=== PATIENT | female | born 1960 | race Caucasian/White ===

== ENCOUNTER 2017-05-16 16:58 | Emergency (ER) | payer BC ==
--- NOTE | 2017-05-16 18:43 | UC ---
Throat Pain/Nasal Kendall HPI - HPI Summary HPI Summary: left side of throat sore and swollen and left ear painful also feels feverish - History of Current Complaint Chief Complaint: UCRespiratory Stated Complaint: SWOLLEN THROAT Time Seen by Provider: 05/16/17 18:36 Hx Obtained From: Patient ?: No Onset/Duration: Sudden Onset, Lasting Days - 1, Still Present Severity: Moderate Cough: None Associated Signs & Symptoms: Positive: Fever - Allergies/Home Medications Allergies/Adverse Reactions: Allergies Allergy/AdvReac Type Severity Reaction Status Date / Time No Known Allergies Allergy Verified 05/16/17 17:16 Home Medications: Home Medications Fluticasone NASAL SPRAY 50MCG* [Flonase NASAL SPRAY 50MCG*] 05/16/17 [History Confirmed 05/16/17] PMH/Surg Hx/FS Hx/Imm Hx Previously Healthy: No Cardiovascular History: Hypertension GI/ History: Gastroesophageal Reflux Psychological History: Depression - Surgical History Surgical History: Yes Surgery Procedure, Year, and Place: 1994- [facility] [place]. Vaughn, Repair of left thumb tendon. 1997- [facility] [place], Dr. Conde, Total ACL replacement. 2008- [place], Hysterectomy with salpingectomy - Family History Known Family History: Positive: None Family History: no reported issues in family lineage - Social History Occupation: Retired Lives: With Family Alcohol Use: None Substance Use Type: None Smoking Status (MU): Former Smoker Type: Cigarettes Length of Time of Smoking/Using Tobacco: 20 years Have You Smoked in the Last Year: No When Did the Patient Quit Smoking/Using Tobacco: QUIT 15 YRS AGO - Immunization History Most Recent Influenza Vaccination: 2011 Most Recent Tetanus Shot: 2010 Most Recent Pneumonia Vaccination: Never Review of Systems Constitutional: Fever, Chills, Fatigue Skin: Negative Eyes: Negative ENT: Sore Throat, Ear Ache Respiratory: Negative Cardiovascular: Negative Gastrointestinal: Negative Genitourinary: Negative Motor: Negative Neurovascular: Negative Musculoskeletal: Negative Neurological: Negative Psychological: Negative All Other Systems Reviewed And Are Negative: Yes Physical Exam Triage Information Reviewed: Yes Appearance: Well-Appearing, No Pain Distress, Well-Nourished Vital Signs: Initial Vital Signs Temp 97.3 F 05/16/17 17:12 Pulse 96 05/16/17 17:12 Resp 12 05/16/17 17:12 BP 144/59 05/16/17 17:12 Pulse Ox 99 05/16/17 17:12 Vital Signs Reviewed: Yes Eye Exam: Normal Eyes: Positive: Conjunctiva Clear ENT Exam: Normal ENT: Positive: Normal ENT inspection, Hearing grossly normal, Pharynx normal, TMs normal, Tonsillar swelling - left. Negative: Nasal congestion, Nasal drainage, Trismus, Muffled/hoarse voice Dental Exam: Normal Neck exam: Normal Neck: Positive: Supple, Nontender, No Lymphadenopathy Respiratory Exam: Normal Respiratory: Positive: Chest non-tender, Lungs clear, Normal breath sounds, No respiratory distress, No accessory muscle use Cardiovascular Exam: Normal Cardiovascular: Positive: RRR, No Murmur, Pulses Normal, Brisk Capillary Refill Musculoskeletal Exam: Normal Musculoskeletal: Positive: Strength Intact, ROM Intact, No Edema Neurological Exam: Normal Neurological: Positive: Alert, Muscle Tone Normal Psychological Exam: Normal Skin Exam: Normal Diagnostics - Laboratory Diagnostic Studies Completed/Ordered: RST (+) Throat Pain/Nasal Course/Dx - Course Assessment/Plan: Amoxicillin, tylenol, ibuprofen increase fluids follow with pcp - Differential Dx/Diagnosis Differential Diagnosis/HQI/PQRI: Otitis Media, Peritonsillar Abscess, Pharyngitis, Sinusitis Provider Diagnoses: Strep Pharyngitis, Hypertension in poor control Discharge - Discharge Plan Condition: Stable Disposition: HOME Prescriptions: Cephalexin CAP* [Keflex CAP*] 500 mg PO BID #18 cap Patient Education Materials: Cephalexin (By mouth), Ibuprofen (By mouth), Strep Throat (ED) Referrals: Janneth Cruz MD [Primary Care Provider] - 2 Weeks
[2017-05-16] MEDS ORDERED: Ibuprofen TAB* 600 MG PO ONE (18:44)
[2017-05-16 19:02] VITALS: BP 124/99
[2017-05-16] MEDS ORDERED: Cephalexin CAP* 500 MG PO ONE ×2 (19:12→19:16)
== END 2017-05-16 19:23 | disposition home or self-care (01) ==
LOC: UCEAST 16:58
DX: J02.0 Streptococcal pharyngitis (principal); I10 Essential (primary) hypertension; K21.9 Gastro-esophageal reflux disease without esophagitis; F32.9 Major depressive disorder, single episode, unspecified; Z87.891 Personal history of nicotine dependence
CPT/HCPCS: 87651; 99213; A9270-GY; G0463

== ENCOUNTER 2019-11-19 13:03 | Emergency (ER) | payer BC ==
--- OUTSIDE RECORDS SUMMARY | 2019-11-19 13:16 | XMS REPORT | Continuity of Care Document ---
:1960 Author Organization [facility] Address [address], [place] [id number] Phone Care Team Providers Name Role Phone Griselda CROCKETTJanuary Unavailable Unavailable Allergies, Adverse Reactions, Alerts Substance Reaction Status No Known Allergies Active Medications Medication Instructions Dosage Effective Dates Status Comments (start - stop) METHOTREXATE SODIUM TAKE 8 TABLETS BY - Active 2.5 MG TABLET MOUTH ONCE A WEEK DULOXETINE HCL DR TAKE 1 CAPSULE - Active CAPS 60MG DAILY Voltaren 1 % apply (2G) by - Active topical gel topical route 4 times every day to the affected area(s) folic acid 1 mg take 2 tablet by 2 MG - Active tablet oral route every day GABAPENTIN CAPS TAKE 2 CAPSULES AT - Active 300MG BEDTIME Lidoderm 5 % apply 1 - 2 patch 1-2 patch - Active topical patch by transdermal route every day (May wear up to 12hours.) OTC SUPPLEMENTS take 1 by Oral - Active route every day as directed/needed irbesartan 150 mg take 1 tablet by 150 MG - Active tablet oral route every day metoprolol take 1 tablet by 100 MG - Active succinate ER 100 mg oral route every tablet,extended day release 24 hr methotrexate sodium take 8 tablets by - No Longer 2.5 mg tablet mouth once a week Active methotrexate sodium take 8 tablets by - No Longer 2.5 mg tablet mouth once a week Active folic acid 1 mg take 1 tablet by 1 MG - No Longer tablet oral route every Active day DULOXETINE HCL DR TAKE 1 CAPSULE - No Longer CAPS 60MG DAILY Active Problems Condition Effective Dates (start - Clinical Status Comments stop) Rheumatoid arthritis w/o rheumatoid factor, multiple sites Other snf (current) drug therapy 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 non-steroidal anti-inflammatories (NSAID) Rheumatoid arthritis w/o rheumatoid factor, multiple sites Other exterminator helper termite (current) drug therapy Pain in joint Back pain Fibromyalgia Lung mass found on diagnostic imaging of lung Rheumatoid arthritis w/o rheumatoid factor of multiple sites Other nonspecific abnormal - finding of lung field Pain in joint Back pain Fibromyalgia Lung mass found on diagnostic imaging of lung Primary generalized (osteo)arthritis Fibromyalgia Other exterminator helper termite (current) drug therapy Fibromyalgia Primary generalized (osteo)arthritis Other exterminator helper termite drug therapy Fibromyalgia Primary generalized (osteo)arthritis Other exterminator helper termite drug therapy Primary generalized (osteo)arthritis Fibromyalgia Lateral epicondylitis, left elbow Other snf drug therapy Primary generalized (osteo)arthritis Fibromyalgia Other exterminator helper termite drug therapy Fibromyalgia Primary generalized (osteo)arthritis Other exterminator helper termite drug therapy Fibromyalgia Primary generalized (osteo)arthritis Other snf drug therapy Procedures Procedure Date ROUTINE VENIPUNCTURE COMPLETE CBC W/AUTO DIFF WBC RBC SED RATE, AUTOMATED C-REACTIVE PROTEIN ASSAY OF CREATININE TRANSFERASE (AST) (SGOT) ALANINE AMINO (ALT) (SGPT) OFFICE/OUTPATIENT VISIT, EST Results Test Name Date and Time Measure Units Reference Range Abnormal Flag Status Comments Panel Description: CBC Final WBC 14:12:00 5.2 10*3/uL 3.7-10.1 Final RBC 14:12:00 4.60 10*6/uL 3.50-5.50 Final HGB 14:12:00 13.5 g/dL 12.0-16.0 Final HCT 14:12:00 41.2 % 36.0-48.0 Final MCV 14:12:00 89.7 fL 80.0-100.0 Final MCH 14:12:00 29.4 pg 26.0-34.0 Final MCHC 14:12:00 32.8 g/dL 31.0-37.0 Final RDW 14:12:00 12.8 % 10.0-15.0 Final PLATELETS 14:12:00 358 10*3/uL 150-500 Final MPV 14:12:00 6.4 fL 6.0-10.0 Final JONEL# 14:12:00 2.94 10*3/uL 2.10-8.00 Final LYM# 14:12:00 1.76 10*3/uL 1.00-5.00 Final MONO# 14:12:00 0.29 10*3/uL 0.10-1.00 Final EOS# 14:12:00 0.1 10*3/uL 0.0-0.5 Final BASO# 14:12:00 0.0 10*3/uL 0.0-0.2 Final JONEL% 14:12:00 56.8 % 50.0-80.0 Final LYM% 14:12:00 34.0 % 25.0-50.0 Final MONO% 14:12:00 5.5 % 2.0-10.0 Final EOS% 14:12:00 2.8 % 0.0-5.0 Final BASO% 14:12:00 0.9 % 0.0-4.0 Final Panel Description: ESR Final ESR 14:12:00 12 mm/Hr 0-20 Final Panel Description: ALT Final ALT 14:12:00 22 U/L 30-65 L Final Panel Description: AST Final AST 14:12:00 15 U/L 15-37 Final Panel Description: CREATININE Final CREATININE 14:12:00 0.7 mg/dL 0.6-1.2 Final eGFR 14:12:00 >60 mL/min/1.73m Final Panel Description: CRP Final CRP 14:12:00 <0.2 mg/dL 0.0-1.0 Final Advance Directives Directive Yes / No Effective Date File Name No information Encounters Encounter Practice Location Reason(s) Diagnoses Date Provider Providers Description For Visit Copied on Encounter Arthritis Arthritis [facility] PA-C January. Ross Hawkins 9 [address] PLL[facility], 5794 PLLC [facility], [place], [place], [place], [place], [id number], [id number], [place]. [place] tel:[phone] tel:[phone] Arthritis Arthritis [facility] PA-C Bruna. Ross Hawkins 9 5[address] PLLC, 5794 PLLC [facility], [place], [place], [place], [place], [place], [id number], [id number], [place]. [place] tel:[phone] tel:[phone] OFFICE/OUTPA Arthritis Arthritis Rheumatoid Rheumatoid [facility] arthritis arthritis w/o PA-C January. Provider: HARDIK Hawkins (chief rheumatoid 9 5[facility], [facility] complaint) Solomon carl MD, [facility], [address] [place] [address], [facility], [place], [place], snf [place], [place], [place], (current) [id number], [place], [address]. [id number], drug [place]. tel:[phone] [place] therapyPain tel:[phone] tel:[phone] wristLong term (current) use of non-steroidal anti-inflamma tories (NSAID) Arthritis Arthritis [facility] 4- MD Dinero. Ross Hawkins 9 5794 PLLC, 5794 PLLC [facility], [place], [place], [place], [place], [place], [id number], [id number], [place]. [place] tel:[phone] tel:[phone] Arthritis Arthritis [facility] 9- BON Mcfarladn. [facility] 9 5794 PLLC, 5794 PLLC [facility], [place], [place], [place], [id number], [id number], [place]. [place] tel:[phone] tel:[phone] Arthritis Arthritis Rheumatoid [facility] arthritis w/o 2- BON Nelson. Provider: Ross Hawkins rheumatoid 9 5[address] [facility], 5[facility] PLLC Solomon carl MD, [facility], [address] [place] [address], sitesOther [place], [place], [place], snf [place], [place], [place], (current) [id number], [place], [address]. [id number], drug therapy [place]. tel:[phone] [place] tel:[phone] tel:[phone] Arthritis Arthritis [facility] 0- MD Dinero. Associates Ross 9 5794 PLLC, 5794 PLLC [facility], [place], [place], [place], [id number], [id number], [place]. [place] tel:[phone] tel:[phone] Arthritis Arthritis Pain in [facility] 1- MD Dinero. Provider: Ross Hawkins painFibromyal 9 5794 [facility], 5794 PLLC giSaurabh [facility] Fitch MD, [facility] found on [place], [address] [facility], diagnostic [place], [place], [place], imaging of [place], [place], [place], lungRheumatoi [id number], [place], [address]. [id number], d arthritis [place]. tel:[phone] [place] w/o tel:[phone] tel:[phone] factor of multiple sites Arthritis Arthritis Other [facility] nonspecific 4-201 MD Dinero. Provider: [facility] abnormal 9 5794 [facility], 5794 PLLC finding of Solomon Fitch MD, [facility] lung field [place], [address] [facility], [place], [place], [place], [place], [place], [place], [id number], [place], [address]. [id number], [place]. tel:[phone] [place] tel:[phone] tel:[phone] Arthritis Arthritis Nabil-0 [facility] 3-201 BON Mcfarland. [facility] 9 5794 PLLC, 5794 PLLC [facility], [place], [place], [place], [place], [place], [id number], [id number], [place]. [place] tel:[phone] tel:[phone] Arthritis Arthritis Pain in February- [facility] 0-201 MD Dinero. Provider: Ross Hawkins painFibromyal 9 5794 [facility], 5794 PLLC giaLung mass Solomon Fitch MD, [facility] found on [place], [address] [facility], [facility], [place], [place], imaging of [place], [place], [place], lung [id number], [place], [address]. [id number], [place]. tel:[phone] [place] tel:[phone] tel:[phone] Arthritis Arthritis Primary Dec-0 [facility] generalized 6-201 BON Mcfarland. Provider: Ross Hawkins (osteo)arthri 8 5794 [facility], 5794 PLLC tisFibromyalg Solomon Fitch MD, [facility] iaOther long [place], [address] [facility], term [place], [place], [place], (current) [place], [place], [place], drug therapy [id number], [place], [address]. [id number], [place]. tel:+[phone] [place] tel:[phone] tel:[phone] Arthritis Arthritis FibromyalgiaP Nabil-0 [facility] rimary 6-201 BON Mcfarland. Provider: Ross Hawkins generalized 8 5794 [facility], 5794 PLLC (osteo)arthri [place] Niziol MD, [facility], [address] [place] [address], term drug [place], Street, [place], therapy [place], [place], [place], [id number], [place], [address]. [id number], [place]. tel:+[phone] [place] tel:[phone] tel:[phone] Arthritis Arthritis FibromyalgiaP Dec-0 [place] Referring [facility] 6-201 BON Mcfarland. Provider: Ross Hawkins generalized 7 5794 [facility], 5794 PLLC (osteo)dario Fitch MD, [facility], [address] [place] [address], term drug [place], Street, [place], therapy [place], [place], [place], [id number], [place], [address]. [id number], [place]. tel:[phone] [place] tel:[phone] tel:[phone] Arthritis Arthritis Primary Nabil-0 McIain Referring [facility] 7-201 BON Mcfarland. Provider: Ross Pardoosteyuliana)arthri 7 5794 [facility], 5794 PLLC Kinga Fitch MD, [facility], [address] [place] [address], epicondylitis [place], Street, [place], , left [place], [place], [place], elbowOther [id number], [place], [address]. [id number], exterminator helper termite [place]. tel:+[phone] [place] drug therapy tel:[phone] tel:[phone] Arthritis Arthritis Primary Dec-0 [place] Referring [facility] 7-201 BON Mcfarland. Provider: Ross Pardoosteo)arthri 6 5794 [facility], 5794 PLLC Kinga Fitch MD, [facility], [address] [facility], term drug [place], Street, [place], therapy [place], [place], [place], [id number], [place], [address]. [id number], [place]. tel:+[phone] [place] tel:[phone] tel:[phone] Arthritis Arthritis FibromyalgiaP Nabil-0 [place] Referring [facility] BON Mcfarland. Provider: Ross Hawkins generalized 6 5794 Luis Alberto PLLNicole, 5794 PLLC (osteo)dario Fitch MD, [facility], [address] [place] [address], term drug [place], Street, [place], therapy [place], [place], [place], [id number], [place], [address]. [id number], [place]. tel:[phone] tel:[phone] tel:[phone] Arthritis Arthritis FibromyalgiaP Dec-0 [place] Referring [facility] BON Mcfarland. Provider: Ross Hawkins generalized 5 5794 Luis Alberto [facility], 5794 PLLC (osteo)dario Fitch MD, [facility], [address] [place] [address], term drug [place], [place], [place], therapy [place], [place], [id number], [place], [address]. [id number], [place]. tel:+[phone] tel:[phone] tel:[phone] Arthritis Arthritis Bijan ALLEN Referring [facility] [place]. 5794 Provider: Ross Hawkins 3 [facility] Luis Alberto PLLNicole, 5794 PLLC Constantine Dickerson MD, [facility], [address] [place] [address], [place], [place], [id number] [place] [address], [place], [address]. [id number], tel:[phone] tel:[phone] tel:[phone] Family History Family Member Diagnosis Age At Onset Family history of Hypertension Family history of Stroke Family history of Diabetes mellitus Immunizations Vaccine Date Status Comments Influenza, injectable, MDCK, administered Source: Other Provider Flucelvax Quad 2017-2018Y Influenza, injectable, quadrivalent, administered Source: Other Provider split virus, 18 years or older Afluria Quad [id number] Payers Payer name Insurance type Covered constitution party ID Authorization(s) BCBS No Referral Required BL [id number] Social History Type Description Quantity Date Captured Comments Alcohol Use Details No Caffeine Use Details No Tobacco Use Status Ex-cigarette smoker Smoking Status Former smoker Smoking Tobacco Use Cigarette: No Details Available Cigarette: No Details Available Details Sex Female Vital Signs Date / Height Weight BMI Pulse Blood Temperature Respiratory Body Head BMI Pulse Inhaled Time: Rate Pressure Rate Surface Circumference percentile Ox Ox Area 63.00 256.00 45.3 124 in lbs 5 mm[Hg] 1:35 kg/m PM eter (2) Chief Complaint And Reason For Visit No information Reason For Referral Reason For Referral No information Plan Of Treatment Date Type Action Status Referral Ordered: ordered *Chest Xrays 2 Views Referral Ordered: ordered *XRAY ENTIRE SPINE AP/LAT Appointment Sabina Roman BOOKED History Of Present Illness Encounter Date Complaint History Of Present Illness Rheumatoid arthritis The pain severity is 7/10. Patient denies having generalized morning stiffness, hair loss, diarrhea, infection, fever, rash, oral ulcers (mouth sores) and photosensitivity. Patient is currently taking Methotrexate with no side effects. Functional Status Date Functional Assessment No information Medications Administered Medication Instructions Dosage Effective Dates (start - stop) Status Comments No information Instructions Date Instruction Additional Information Reviewed importance of compliance/adherence to medications prescribed Risks/benefits of medications reviewed Discussed importance of holding DMARDs/ biologics if patient develops an infection and to notify the treating physician Reviewed importance of compliance/adherence to medications prescribed Risks/benefits of medications reviewed Discussed importance of holding DMARDs/ biologics if patient develops an infection and to notify the treating physician
--- OUTSIDE RECORDS SUMMARY | 2019-11-19 13:16 | XMS REPORT | Continuity of Care Document ---
:1960 Author Organization [facility] Address [address], [place] [id number] Phone Care Team Providers Name Role Phone [...] mg tablet mouth once a week Active DULOXETINE HCL DR TAKE 1 CAPSULE - No Longer CAPS 60MG DAILY Active Problems Condition Effective Dates (start - Clinical Status Comments stop) Rheumatoid arthritis w/o rheumatoid factor, multiple sites Other termite renewal inspector (current) drug therapy Pain in lt wrist [facility] (current) use of non-steroidal anti-inflammatories (NSAID) Rheumatoid arthritis w/o rheumatoid factor, multiple sites Other custodial (current) drug therapy Pain in joint Back pain Fibromyalgia Lung mass found on diagnostic imaging of lung Rheumatoid arthritis w/o rheumatoid factor of multiple sites Other nonspecific abnormal - finding of lung field Pain in joint Back pain Fibromyalgia Lung mass found on diagnostic imaging of lung Primary generalized (osteo)arthritis Fibromyalgia Other termite renewal inspector (current) drug therapy Fibromyalgia Primary generalized (osteo)arthritis Other custodial drug therapy Fibromyalgia Primary generalized (osteo)arthritis Other custodial drug therapy Primary generalized (osteo)arthritis Fibromyalgia Lateral epicondylitis, left elbow Other termite renewal inspector drug therapy Primary generalized (osteo)arthritis Fibromyalgia Other termite renewal inspector drug therapy Fibromyalgia Primary generalized (osteo)arthritis Other custodial drug therapy Fibromyalgia Primary generalized (osteo)arthritis Other custodial drug therapy Procedures Procedure Date No information Results Test Name Date and Time Measure Units Reference Range Abnormal Flag Status Comments No information Advance Directives Directive Yes / No Effective Date File Name No information Encounters Encounter Practice Location Reason(s) Diagnoses Date Provider Providers Description For Visit Copied on Encounter Arthritis Arthritis [facility] 3 PA-C January. Ross Hawkins 9 5794 PLLC, 5794 PLLC [facility], [place], [place], [id number], [id number], [place]. [place] tel:[phone] tel:[phone] Arthritis Arthritis [facility] 2 BON Mcfarland. Ross Hawkins 9 5794 PLLC, 5794 PLLC [facility], [place], [place], [id number], [id number], [place]. [place] tel:[phone] tel:[phone] Arthritis Arthritis Rheumatoid [facility] arthritis w/o BON January. Provider: Ross granados 9 5794 [facility], 5794 PLLC Jose carlbannerkristofer Fitch MD, [facility], [address] [facility], sitesOther [place], Street, [place], termite renewal inspector [place], [place], (current) drug [id number], [place], [address]. [id number], therapyPain in [place]. tel:+[phone] [place] lt wristLong tel:[phone] tel:[phone] term (current) [phone] use of non-steroidal anti-inflammat ories (NSAID) Arthritis Arthritis [facility] - PAElla Mcfarland. Ross Hawkins 9 5794 PLLC, 5794 PLLC [facility], [place], [place], [place], [id number], [id number], [place]. [place] tel:[phone] tel:[phone] Arthritis Arthritis Rheumatoid [facility] arthritis w/o PAElla Nelson. Provider: Ross Hawkins rheumatoid 9 5794 Luis Alberto PLLC, 5794 PLLC [facility], Solomon Fitch MD, [facility], [address] [place] [address], sitesOther [place], Street, [place], custodial [place], [place], (current) drug [id number], [place], [address]. [id number], therapy [place]. tel:+[phone] [place] tel:[phone] tel:[phone] Arthritis Arthritis Pain in [facility] jointBack MD Dinero. Provider: Ross Hawkins painFibromyalg 9 5794 Luis [facility]to PLLC, 5794 PLLC iaLung [facility] Solomon Fitch MD, [facility] found on [place], [address] [place] [address], diagnostic [place], Street, [place], [place], lungRheumatoid [id number], [place], [address]. [id number], arthritis w/o [place]. tel:+[phone] [place] rheumatoid tel:[phone] tel:[phone] [phone] multiple sites Arthritis Arthritis Other [facility] nonspecific - MD Dinero. Provider: Ross Hawkins abnormal 9 5794 [facility] PLLC, 5794 PLLC finding of Solomon Fitch MD, [facility] lung field [place], [address] [facility], [place], [place], [place], [place], [place], [place], [id number], [place], [address]. [id number], [place]. tel:+[phone] [place] tel:[phone] tel:[phone] Arthritis Arthritis Nabil-0 [facility] 3-201 BON Mcfarland. [facility] 9 5794 PLLC, 5794 PLLC Josebannerkristofer [facility], [place], [place], [place], [place], [id number], [id number], [place]. [place] tel:[phone] tel:[phone] Arthritis Arthritis Pain in February- [facility] jointBack 0-201 MD Dinero. Provider: Ross Hawkins painFibromyalg 9 5794 Luis Alberto PLLC, 5794 PLLC iaLung mass Solomon Fitch MD, [facility] found on [place], [address] [place] [address], diagnostic [place], [place], [place], [place], [place], [place], lung [id number], [place], [address]. [id number], [place]. tel:+[phone] [place] tel:[phone] tel:[phone] Arthritis Arthritis Primary Dec-0 [facility] generalized 6- BON Mcfarland. Provider: Ross Hawkins (osteo)arthrit 8 5794 Luis Alberto PLLC, 5794 PLLC isFibromyalgia Solomon Fitch MD, [facility] Other long [place], [address] [facility], term (current) [place], [place], [place], drug therapy [place], [place], [place], [id number], [place], [address]. [id number], [place]. tel:+[phone] [place] tel:[phone] tel:[phone] Arthritis Arthritis FibromyalgiaPr Nabil-0 [facility] imary 6-201 BON Mcfarland. Provider: Ross Hawkins generalized 8 5794 Luis Alberto PLLC, 5794 PLLC (osteo)lukas Fitch MD, [facility], [address] [place] [address], term drug [place], Street, [place], [place], [place], [place], [id number], [place], [address]. [id number], [place]. tel:+[phone] [place] tel:[phone] tel:[phone] Arthritis Arthritis FibromyalgiaPr Dec-0 [place] Referring [facility] imary 6-201 BON Mcfarland. Provider: Ross Hawkins generalized 7 5794 Luis Alberto PLLC, 5794 PLLC (osteo)lukas Fitch MD, [facility], [address] [facility], term drug [place], Street, [place], [place], [place], [id number], [place], [address]. [id number], [place]. tel:+[phone] [place] tel:[phone] tel:[phone] Arthritis Arthritis Primary Nabil-0 [place] Referring [facility] generalized 7-201 BON Mcfarland. Provider: Ross Hawkins (osteyuliana)arthrit 7 5794 Luis Alberto PLLC, 5794 PLLC isFibromrachele Fitch MD, [facility], [address] [place] [address], epicondylitis, [place], Street, [place], left [place], [place], [place], elbowOther [id number], [place], [address]. [id number], termite renewal inspector drug [place]. tel:+[phone] [place] therapy tel:[phone] tel:[phone] Arthritis Arthritis Primary Dec-0 [place] Referring [facility] generalized 7-201 BON Mcfarland. Provider: Ross Hawkins (osteo)arthrit 6 5794 Luis [facility]to PLLC, 5794 PLLC isFkamilla Fitch MD, [facility], [address] [place] [address], term drug [place], Street, [place], therapy [place], [place], [place], [id number], [place], [address]. [id number], [place]. tel:+[phone] [place] tel:[phone] tel:[phone] Arthritis Arthritis FibromyalgiaPr Nabil-0 [place] Referring [facility] imary BON Mcfarland. Provider: Ross Hawkins generalized 6 5794 Luis Alberto PLLNicole, 5794 PLLC (osteo)lukas Fitch MD, [facility], [address] [place] [address], term drug [place], Street, [place], therapy [place], [place], [id number], [place], [address]. [id number], [place]. tel:+[phone] tel:[phone] tel:[phone] Arthritis Arthritis FibromyalgiaPr Dec-0 [place] Referring [facility] BON Mcfarland. Provider: Ross Hawkins generalized 5 5794 Luis Alberto [facility]ORD[facility], 5794 PLLC (osteo)lukas Fitch MD, [facility], [address] [place] [address], term drug [place], [place], [place], therapy [place], [place], [id number], [place], [address]. [id number], [place]. tel:+[phone] tel:[phone] tel:[phone] Arthritis Arthritis Bijan ALLEN [facility]. 5794 Provider: Ross Hawkins 3 [facility] Luis Alberto PLLNicole, 5794 PLLC Constantine Dickerson MD, [facility], [address] [place] [address], [place], [place], [id number], [place], [place], [address]. [id number], tel:[phone] tel:[phone] tel:[phone] Family History Family Member Diagnosis Age At Onset Family history of Hypertension Family history of Stroke Family history of Diabetes mellitus Immunizations Vaccine Date Status Comments Influenza, injectable, MDCK, administered Source: Other Provider Flucelvax Quad 2017-2018Y Influenza, injectable, quadrivalent, administered Source: Other Provider split virus, 18 years or older Afluria Quad 5501-4009 Payers Payer name Insurance type Covered republican ID Authorization(s) BCBS No Referral Required [id number] Social History Type Description Quantity Date Captured Comments Sex Female Vital Signs Date / Height Weight BMI Pulse Blood Temperature Respiratory Body Head BMI Pulse Inhaled Time: Rate Pressure Rate Surface Circumference percentile Ox [place] Area No information Chief Complaint And Reason For Visit No information Reason For Referral Reason For Referral No information Plan Of Treatment Date Type Action Status Referral Ordered: ordered *Chest Xrays 2 Views Referral Ordered: ordered *XRAY ENTIRE SPINE AP/LAT Appointment Sabina Roman BOOKIRMA History Of Present Illness Encounter Date Complaint History Of Present Illness No information Functional Status Date Functional Assessment No information [...]
--- OUTSIDE RECORDS SUMMARY | 2019-11-19 13:16 | XMS REPORT | Continuity of Care Document ---
:1960 Author Organization [facility] Address [address], [place] [id number] Phone Care Team Providers Name Role Phone [...] mg tablet mouth once a week Active Problems Condition Effective Dates (start - Clinical Status Comments stop) Rheumatoid arthritis w/o rheumatoid factor, multiple sites Other terminal gauger supervisor (current) drug therapy Pain in lt wrist [employer] (current) use of non-steroidal anti-inflammatories (NSAID) Rheumatoid arthritis w/o rheumatoid factor, multiple sites Other [facility] (current) drug therapy Pain in joint Back pain Fibromyalgia Lung mass found on diagnostic imaging of lung Rheumatoid arthritis w/o rheumatoid factor of multiple sites Other nonspecific abnormal - finding of lung field Pain in joint Back pain Fibromyalgia Lung mass found on diagnostic imaging of lung Primary generalized (osteo)arthritis Fibromyalgia Other terminal gauger supervisor (current) drug therapy Fibromyalgia Primary generalized (osteo)arthritis Other terminal gauger supervisor drug therapy Fibromyalgia Primary generalized (osteo)arthritis Other [facility] drug therapy Primary generalized (osteo)arthritis Fibromyalgia Lateral epicondylitis, left elbow Other [facility] drug therapy Primary generalized (osteo)arthritis Fibromyalgia Other terminal gauger supervisor drug therapy Fibromyalgia Primary generalized (osteo)arthritis Other [facility] drug therapy Fibromyalgia Primary generalized (osteo)arthritis Other [facility] drug therapy Procedures Procedure Date No information Results Test Name Date and Time Measure Units Reference Range Abnormal Flag Status Comments No information Advance Directives Directive Yes / No Effective Date File Name No information Encounters Encounter Practice Location Reason(s) Diagnoses Date Provider Providers Description For Visit Copied on Encounter Arthritis Arthritis [facility] 3 BRITTANY-Nicole January. Ross Hawkins 9 5794 PLLC, 5794 PLLC [facility], [place], [place], [id number], [id number], [place]. [place] tel:[phone] tel:[phone] Arthritis Arthritis [facility] 2 BON Mcfarland. Ross Hawkins 9 5794 PLLC, 5794 PLLC [facility], [place], [place], [id number], [id number], [place]. [place] tel:[phone] tel:[phone] Arthritis Arthritis Rheumatoid [facility] arthritis w/o BON January. Provider: Ross Hawkins rheumatoid 9 5794 Luis Alberto PLLC, 5794 PLLC Solomon carl MD, [facility], [address] [place] [address], [facility], [facility], [place], [place], (current) drug [id number], [place], [address]. [id number], therapyPain in [place]. tel:+[phone] [place] lt wristLong tel:[phone] tel:[phone] term (current) 513 use of non-steroidal anti-inflammat ories (NSAID) Arthritis Arthritis [facility] 9- PAElla Mcfarland. [facility] 9 5794 PLLC, 5794 PLLC [facility], [place], [place], [place], [place], [id number], [id number], [place]. [place] tel:[phone] tel:[phone] Arthritis Arthritis Rheumatoid [facility] arthritis w/o 2 PAElla January. Provider: Ross Hawkins rheumatoid 9 5794 Luis Alberto PLLC, 5794 PLLC factor, Solomon Fitch MD, [facility], [address] [place] [address], sitesOther [facility], [place], terminal gauger supervisor [place], [place], [place], (current) drug [id number], [place], [address]. [id number], therapy [place]. tel:+607 [place] tel:[phone] tel:[phone] Arthritis Arthritis Pain in [facility] jointBack 1- MD Dinero. Provider: Ross Hawkins painFibromyalg 9 5794 Luis Alberto PLLC, 5794 PLLC iaLung mass Solomon Fitch MD, [facility] found on [place], [address] [place] [address], [facility], [place], [place], imaging of [place], [place], [place], lungRheumatoid [id number], [place], [address]. [id number], arthritis w/o [place]. tel:+607 [place] rheumatoid tel:[phone] tel:[phone] multiple sites Arthritis Arthritis Other [facility] nonspecific 4-201 MD Dinero. Provider: Ross Hawkins abnormal 9 5794 Luis Alberto PLLC, 5794 PLLC finding of Solomon Fitch MD, [facility], [address] [place] [address], [place], Street, [place], [place], [place], [place], [id number], [place], [address]. [id number], [place]. tel:+60 [place] tel:[phone] tel:[phone] Arthritis Arthritis Pain in February- [facility] Referring [facility] jointBack 0-201 MD Dinero. Provider: Ross Hawkins painFibromyalg 9 5794 Luis Alberto PLLC, 5794 PLLC iaLung mass Solomon Fitch MD, [facility] found on [place], [address] [place] [address], diagnostic [place], Street, [place], imaging of [place], [place], [place], [place] [id number], [place], [address]. [id number], [place]. tel:+[phone] tel:[phone] tel:[phone] Arthritis Arthritis Primary Dec-0 Mc[place] Referring [facility] generalized - BNO Mcfarland. Provider: Ross Hawkins (osteo)arthrit 8 5794 Luis Alberto PLLC, 5794 PLLC isFibromyalgia Solomon Fitch MD, [facility], [address] [place] [address], term (current) [place], Street, [place], drug therapy [place], [place], [place], [id number], [place], [address]. [id number], [place]. tel:+[phone] tel:[phone] tel:[phone] Arthritis Arthritis FibromyalgiaPr Nabil-0 [place] Referring [facility] imary 6 BON Mcfarland. Provider: Ross Hawkins generalized 8 5794 Luis Alberto PLLC, 5794 PLLC (osteo)lukas Fitch MD, [facility], [address] [place] [address], term drug [place], Street, [place], therapy [place], [place], [place], [id number], [place], [address]. [id number], [place]. tel:+607 tel:[phone] tel:[phone] Arthritis Arthritis FibromyalgiaPr Dec-0 [place] Referring [facility] imary 6 BON Mcfarland. Provider: Ross adame 7 5794 Luis Alberto PLLC, 5794 PLLC (osteo)lukas Fitch MD, [facility], [address] [place] [address], term drug [place], Street, [place], [place], [place], [place], [id number], [place], [address]. [id number], [place]. tel:+[phone] [place] tel:[phone] tel:[phone] Arthritis Arthritis Primary Nabil-0 [place] Referring [facility] generalized 7 BON Mcfarland. Provider: Ross weber)lukas 7 5794 Luis Alberto PLLC, 5794 PLLC isFibromrachele Fitch MD, [facility], [address] [place] [address], epicondylitis, [place], Street, [place], left [place], [place], [place], elbow[place] [id number], [place], [address]. [id number], terminal gauger supervisor drug [place]. tel:[phone] [place] therapy tel:[phone] tel:[phone] Arthritis Arthritis Primary Dec-0 Mc[place]ain Referring [facility] generalized 7 BON Mcfarland. Provider: Ross gaytan (osteo) 6 5794 Luis Alberto PLLC, 5794 PLLC isFkamilla Fitch MD, [facility], [address] [place] [address], term drug [place], Street, [place], therapy [place], [place], [place], [id number], [place], [address]. [id number], [place]. tel:[phone] [place] tel:[phone] tel:[phone] Arthritis Arthritis FibromyalgiaPr Nabil-0 [place] Referring [facility] imary 8 BON Mcfarland. Provider: Ross adame 6 5794 Luis Alberto PLLC, 5794 PLLC (osteo)lukas Fitch MD, [facility], [address] [facility], term drug [place], Street, [place], [place], [place], [place], [id number], [place], [address]. [id number], [place]. tel:[phone] tel:[phone] tel:[phone] Arthritis Arthritis FibromyalgiaPr Mc[place] Referring [facility] imary BON Mcfarland. Provider: Ross Hawkins [facility] 5 5794 Luis Alberto PLLC, 5794 PLLC (osteo)arthrit [facility] Fitch MD, [facility], [address] [place] [address], [facility] drug [place], Street, [place], therapy [place], [place], [place], [id number], [place], [address]. [id number], . tel:+[phone] tel:[phone] tel:[phone] Arthritis Arthritis Bijan ALLEN Referring [facility] [place]. 5794 Provider: Ross Hawkins 3 [facility] Luis Alberto PLLC, 5794 PLLC Constantine Dickerson MD, [facility], [address] [place] [address], [place], [place], [id number], [place], [place], [address]. [id number], tel:[phone] tel:[phone] tel:[phone] Family History Family Member Diagnosis Age At Onset Family history of Hypertension Family history of Stroke Family history of Diabetes mellitus Immunizations Vaccine Date Status Comments Influenza, injectable, MDCK, administered Source: Other Provider Flucelvax Quad 2017-2018Y Influenza, injectable, quadrivalent, administered Source: Other Provider split virus, 18 years or older Afluria Quad 9330-2704 Payers Payer name Insurance type Covered democrat ID Authorization(s) BCBS No Referral Required [id number] Social History Type Description Quantity Date Captured [...]
[2019-11-19 13:34] LABS: Influenza A Molecular Negative (Negative); Influenza B Molecular Negative (Negative)
--- NOTE | 2019-11-19 15:06 | ED ---
Throat Pain/Nasal Congestion - HPI Summary HPI Summary: The patient is a 58-year-old female presenting to [facility] emergency department with a chief complaint of recurring soreness and swelling of the throat initially onset 11/14/2019. She reports that when her symptoms began, [facility] she had [facility] throat, and she was placed on Augmentin. The next day, the clinic called her to let her know that she did not have strep throat, but they were going to send her sample for cultures. On 2019, she was advised to stop her antibiotics, although her symptoms seemed to be improving with the medication. This morning at 0500, she woke up with return of the sore throat with increased swelling and white spots on the left side. She endorses painful swallowing in the throat causing left ear ache. She denies fever or dysphagia of solids or liquids. Symptoms are currently rated 10/10 in severity. Past medical history significant for hypertension, GERD, fibromyalgia. Former smoker, no alcohol use, no substance use. Medications reviewed. Allergies noted. - History of Current Complaint Chief Complaint: EDThroatPain Time Seen by Provider: 11/19/19 14:51 Hx Obtained From: Patient Onset/Duration: Other - initially onset 11/14/19, improved with antibiotics, stopped antibiotics on 11/16/19 as advised, return of symptoms today 11/19/19 Severity: Severe Associated Signs And Symptoms: Negative: Dysphagia Cough: None Related History: Other (Noted In Comments) - no respiratory or ENT history - Allergies/Home Medications Allergies/Adverse Reactions: Allergies Allergy/AdvReac Type Severity Reaction Status Date / Time No Known Allergies Allergy Verified 11/19/19 13:10 PMH/Surg Hx/FS Hx/Imm Hx Endocrine/Hematology History: Denies: Hx Diabetes Cardiovascular History: Reports: Hx Hypertension Denies: Hx Hypercholesterolemia, Other Cardiovascular Problems/Disorders GI History: Reports: Hx Gastroesophageal Reflux Disease Musculoskeletal History: Reports: Hx Arthritis, Hx Fibromyalgia, Hx Orthopedic Injury - RIGHT KNEE ACL, Other Musculoskeletal History - OBESITY Denies: Hx Osteoporosis Sensory History: Reports: Hx Contacts or Glasses Opthamlomology History: Reports: Hx Contacts or Glasses Psychiatric History: Reports: Hx Depression - Cancer History Hx Chemotherapy: No Hx Radiation Therapy: No - Surgical History Surgical History: Yes Surgery Procedure, Year, and Place: 1994- [facility], Dr. Vaughn, Repair of left thumb tendon. 1997- [facility], Dr. Conde, Total ACL replacement. 2008- [place], Hysterectomy with salpingectomy Hx Anesthesia Reactions: No Infectious Disease History: No Infectious Disease History: Denies: Traveled Outside the [place] in Last 30 Days - Family History Known Family History: Negative: Cardiac Disease, Hypertension, Diabetes Family History: no reported issues in family lineage - Social History Alcohol Use: None Hx Substance Use: No Substance Use Type: Reports: None Hx Tobacco Use: Yes Smoking Status (MU): Former Smoker Type: Cigarettes Length of Time of Smoking/Using Tobacco: 20 years Have You Smoked in the Last Year: No Review of Systems Negative: Fever Positive: Sore Throat - with swelling, white spots on left, Ear Ache, Other - painful swallowing; Negative: dysphagia of solids or liqiuids All Other Systems Reviewed And Are Negative: Yes Physical Exam - Summary Physical Exam Summary: VITAL SIGNS: Reviewed. GENERAL: Patient is a well-developed and nourished female who is lying comfortable in the stretcher. Patient is not in any acute respiratory distress. HEAD AND FACE: No signs of trauma. No ecchymosis, hematomas or skull depressions. No sinus tenderness. EYES: PERRLA, EOMI x 2, No injected conjunctiva, no nystagmus. EARS: Hearing grossly intact. Ear canals and tympanic membranes are within normal limits. MOUTH: Swelling of the left tonsil with some white discharge. No airway compromise. No trismus. No swelling of the tongue or lips. NECK: Supple, trachea is midline, no adenopathy, no JVD, no carotid bruit, no c- spine tenderness, neck with full ROM. CHEST: Symmetric, no tenderness at palpation. LUNGS: Clear to auscultation bilaterally. No wheezing or crackles. CVS: Regular rate and rhythm, S1 and S2 present, no murmurs or gallops appreciated. ABDOMEN: Soft, non-tender. No signs of distention. No rebound, no guarding, and no masses palpated. Bowel sounds are normal. EXTREMITIES: FROM in all major joints, no edema, no cyanosis or clubbing. NEURO: Alert and oriented x 3. No acute neurological deficits. Speech is normal and follows commands. SKIN: Dry and warm. Triage Information Reviewed: Yes Vital Signs On Initial Exam: Initial Vitals Temp Pulse Resp BP Pulse Ox 97.6 F 78 19 173/88 97 11/19/19 13:07 11/19/19 13:07 11/19/19 13:07 11/19/19 13:07 11/19/19 13:07 Vital Signs Reviewed: Yes Procedures - Sedation Patient Received Moderate/Deep Sedation with Procedure: No Diagnostics - Vital Signs Vital Signs Temp Pulse Resp BP Pulse Ox 11/19/19 13:07 97.6 F 78 19 173/88 97 - Laboratory Lab Results: Lab Results 11/19/19 Range/Units 13:10 Influenza A (Rapid) Negative (Negative) Influenza B (Rapid) Negative (Negative) Lab Statement: Any lab studies that have been ordered have been reviewed, and results considered in the medical decision making process. Re-Evaluation - Re-Evaluation First Eval Re-Evaluation Time: 15:05 Comment: Patient declined strep test. Plan for discharge with antibiotic rx and follow up with ENT as needed. Patient agreeable with plan. EENT Course/Dx - Course Assessment/Plan: The patient is a 58-year-old female presenting to [facility] emergency department with a chief complaint of recurring soreness and swelling of the throat initially onset 11/14/2019. She reports that when her symptoms began , [facility], and she was placed on Augmentin. The next day, the clinic called her to let her know that she did not have strep throat, but they were going to send her sample for cultures. On 11/16/2019, she was advised to stop her antibiotics, although her symptoms seemed to be improving with the medication. This morning at 0500, she woke up with return of the sore throat with increased swelling and white spots on the left side. She endorses painful swallowing in the throat causing left ear ache. She denies fever or dysphagia of solids or liquids. Symptoms are currently rated 10/10 in severity. Past medical history significant for hypertension, GERD, fibromyalgia. Former smoker, no alcohol use, no substance use. Medications reviewed. Allergies noted. Physical exam reveals that the patient has left tonsillar erythema with some exudates. The patient declines the strep test. However, she reports that when she was taking the Augmentin, the symptoms improved. However, she was asked to stop taking the medication which she did, and now she is getting worse. She only requests a prescription for Augmentin. The patient understands that Im unable to confirm the history of pharyngitis, and if the symptoms do not get better she should follow with ENT as needed. The patient understands and agrees. She is hemodynamically stable alert and oriented 3. - Diagnoses Provider Diagnoses: Pharyngitis Discharge ED - Sign-Out/Discharge Documenting (check all that apply): Patient Departure - Patient will be discharged home. - Discharge Plan Condition: Stable Disposition: HOME Prescriptions: Amoxicillin/Clavulanate TAB* [Augmentin TAB 875*] 875 mg PO BID #14 tab Patient Education Materials: Pharyngitis (ED) Referrals: Janneth Cruz MD [Primary Care Provider] - 3 Days Amish Otto MD [Medical Doctor] - If Needed Additional Instructions: Please take antibiotics as prescribed. Follow up with ENT as needed. Return to the emergency department for any new or worsening symptoms. - Billing Disposition and Condition Condition: STABLE Disposition: Home - Attestation Statements Document Initiated by Kolby: Yes Documenting Scribe: Leigh Ann Flower Provider For Whom Kolby is Documenting (Include Credential): Dr. Jorge Montes MD Scribe Attestation: Leigh Ann Stroud scribed for Dr. Jorge Montes MD on 11/19/19 at 2142. Scribe Documentation Reviewed: Yes Provider Attestation: The documentation as recorded by the Leigh Ann robertson accurately reflects the service I personally performed and the decisions made by me, Dr. Jorge Montes MD Status of Scribe Document: Viewed
[2019-11-19 15:34] VITALS: BP 173/70
== END 2019-11-19 15:33 | disposition home or self-care (01) ==
LOC: ED 13:03
DX: J02.9 Acute pharyngitis, unspecified (principal); I10 Essential (primary) hypertension; Z87.891 Personal history of nicotine dependence
CPT/HCPCS: 99282